=== PATIENT | male | born 1955 | race Caucasian/White ===

== ENCOUNTER 2023-12-12 15:29 | Observation (INO) ==
--- NOTE | 2023-12-12 15:44 | ED Triage Note ---
Date of Service December 12, 2023 Provider in Triage Author: Madison Roach History of Present Illness This patient was briefly evaluated while in triage. An abbreviated physical exam was performed. This patient is a 68-year-old Male who presents to the ED for evaluation of "I have blood in my urine." Pt. was seen at [facility] ED yesterday in [place]. States he spent the night there last night. Has had intermittent blood in the urine since Monday. States they recommended transfer to another hospital in their network, but patient preferred to come here. States he got a shot of antibiotics, labs, and CT imaging completed last night. Physical Exam VITALS: Vitals are noted on the nurse's note and reviewed by myself. GENERAL: This is a 68 year old male, in no acute distress, nondiaphoretic, well- developed well-nourished. SKIN: No obvious rashes, edema, erythema HEAD: Normocephalic atraumatic. EYES: Conjunctivae without injection, sclerae without icterus. NECK: No JVD. LUNGS: No retractions or accessory muscle use. MUSCULOSKELETAL: Normal gait. NEURO: Patient was alert and oriented to person place and time. No focal neurological deficits. Initial orders for labs and / or imaging were placed and patient was placed in the waiting area until a bed is available. Please see further documentation for the full ED course.
--- NOTE | 2023-12-12 16:19 | Emergency Department Note ---
Impression & Plan Hematuria ADMIT ED Provider Note HPI: History obtained from patient. The patient is a 68-year-old male who presents the emergency department with a chief complaint of hematuria. Patient states that he has had some blood in his urine since this past Monday. Patient states that he went to the emergency room at [facility] last night and had CT imaging done and ultimately was recommended for admission for hematuria. Patient states they could not admit him at that facility and they were trying to transfer him to [facility] but secondary to prolonged transfer time patient tells me he signed out AMA and preferred to come to this hospital for further assessment. Patient states he did have a Canela catheter placed overnight and this was ultimately removed. He states he has been having some issues with urinary retention likely secondary to hematuria and blood clots. Patient states he has not been able to urinate since he left the hospital. On arrival here to the ED the patient is otherwise hemodynamically stable, he appears to be in no acute distress on my initial assessment. ROS: - Per HPI Differential Diagnosis: Hemorrhagic renal mass, kidney stone, bladder cancer/bladder tumor, acute cystitis, pyelonephritis, urinary tract infection, BPH, prostate cancer,, amongst other potential pathologies. *Outpatient medications and allergy history reviewed. PE: General: Alert HEENT: Normocephalic, trachea midline Eyes: Extraocular eye movement is intact, no scleral erythema Pulmonary: Clear to auscultation bilaterally, no wheezing Cardio: Regular rate and rhythm GI: Abdomen is soft to palpation : No suprapubic tenderness MSK: No evidence of trauma or malformation of the extremities, no edema Skin: No evidence of rash Neuro: Alert, no focal deficits Psychiatric: Cooperative INDEPENDENT INTERPRETATIONS: hospital monitor: (As interpreted by myself): - An order was placed for continuous cardiac monitoring - Patient was noted to be in sinus rhythm with a rate of 90 Interventions provided in ED: -Canela catheter placed Medical Decision Making: IV was established and lab work obtained, patient was placed on traffic monitor specialist. Lab work shows no leukocytosis, hemoglobin is stable at 11.5 (patient's baseline is about 13.5), CMP does not show any critical findings, creatinine is elevated above baseline at 1.48, BUN is elevated at 34, no critical electrolyte abnormalities are noted, lipase is normal, there is no transaminitis, bilirubin is normal. Urinalysis shows gross hematuria per my interpretation and remainder is not reportable per lab. Patient did present with his CT imaging report from [facility] that was obtained overnight. There was evidence of multiple cystic lesions the largest of which was on his right kidney concerning for proteinaceous cyst versus possible hemorrhagic cyst. Canela catheter was placed as bladder scan was elevated in the 700s and the patient reported urinary retention. Gross hematuria was obtained from the Canela catheter. Catheter was flushed several times without complete resolution of the hematuria. I discussed the patient's presentation with on-call urology, Dr. Gamboa, he is in agreement for consultation and recommends placement of larger caliber catheter for irrigation. This was done with some clearing of the patient's urine. On my reassessment he states he feels improved from previous. [facility] and [facility] consultation. Patient was placed for admission in stable condition. Consultants/Discussions held with other healthcare providers: -Urology, Dr. Gamboa -Hospitalist, Dr. Renee Disposition discussion held by myself with: -Patient Diagnosis: 1. Gross hematuria, acute 2. Urinary retention, acute 3. Right kidney cyst, acute, nonspecific 4. Acute kidney injury 5. Elevated BUN 6. Anemia, acute on chronic Disposition: Admission Collins Palma DO Emergency Medicine Past Med/Surg History Problem List (Updated 12/12/23 @ 21:53 by Collins Palma DO) Hematuria (Acute) DEISI (acute kidney injury) Hematuria Inguinal hernia bilateral, non-recurrent Hypertension (Chronic) Diabetes mellitus, type II (Chronic) Dyslipidemia (Chronic) Gout [facility], followed by Rheumatology B12 deficiency Gastroesophageal reflux disease (Chronic) Benign prostatic hyperplasia with urinary obstruction and other lower urinary tract symptoms (Chronic) Increasing PSA witn nocturia. Followed by urology Elevated prostate specific antigen (PSA) Medical History Acquired deformity of joint of finger Vitamin B12 deficiency Abdominal pain Hyperkalemia Surgical History H/O colonoscopy 09/2016 Repeat 10 yrs Family History Father Cardiac disorder Myocardial infarction Uncle Myocardial infarction Denies family history of Ovarian cancer Prostate cancer Breast cancer Colorectal cancer Social History Smoking Status: Never smoker Second Hand Exposure: No; Do You Dip or Chew Tobacco: No; Hx Alcohol Use: Yes Alcohol type: beer, wine and hard liquor Alcohol Intake Frequency: Monthly or Less Hx Substance Use: No Preferred Language: Nepali Communication Ability: Effective Visual Impairment: Limited Hearing Ability: Normal Route Jumper Required: No marital status: Current Living Situation: Spouse current occupational status: retired How many Children do You have: 0 Feels Safe at Home: Yes Childhood Exposure to Second-Hand Smoke: No Diet: diabetic caffeine: Yes Dental Care, Regularly: Yes Physical Activity Frequency: Daily Physical Activity Frequency Comment: walk Seatbelt Use: always Sunscreen Use: Yes Allergies Allergies Allergy/AdvReac Type Severity Reaction Status Date / Time No Known Allergies Allergy Verified 12/12/23 17:40 Home Meds Home Medications Medication Instructions Recorded Confirmed allopurinol 300 mg tablet 450 mg PO DAILY 04/27/21 12/12/23 Previous Rx's Medication Instructions Recorded esomeprazole magnesium 40 mg 40 mg PO DAILY PRN heartburn #90 08/02/19 capsule,delayed release caps lisinopril 40 mg tablet 40 mg PO DAILY #90 tabs 03/20/23 atorvastatin 40 mg tablet 40 mg PO DAILY #90 tabs 07/03/23 metformin 1,000 mg tablet 1,000 mg PO BID #180 tabs 07/03/23 hydrochlorothiazide 25 mg tablet 25 mg PO DAILY #90 tabs 10/17/23 Results & Data (ED) Vital Signs Vital Signs - 24 hr 12/12/23 15:41 12/12/23 17:23 12/12/23 17:24 Temperature 36.5 C Temperature Source Oral Pulse Rate 116 H 63 Pulse Rate from SpO2 Sensor 63 Respiratory Rate 16 9 L Respiratory Effort / Characteristics Non-Labored Respiratory Depth Normal Blood Pressure 141/74 H Blood Pressure Mean 96 Pulse Oximetry 100 97 100 Oxygen Delivery Method Room Air Room Air Sepsis Recent Fever Within 48 Hours No Sepsis New/Unexplained Change in Mental Status N/A Sepsis Action Taken by Nursing No Action Required 12/12/23 17:29 12/12/23 17:30 12/12/23 17:30 Temperature Temperature Source Pulse Rate 63 66 Pulse Rate from SpO2 Sensor 66 Respiratory Rate 18 Respiratory Effort / Characteristics Respiratory Depth Blood Pressure 130/80 Blood Pressure Mean 86 Pulse Oximetry 99 Oxygen Delivery Method Sepsis Recent Fever Within 48 Hours Sepsis New/Unexplained Change in Mental Status Sepsis Action Taken by Nursing 12/12/23 18:00 12/12/23 18:00 12/12/23 18:30 Temperature Temperature Source Pulse Rate 67 62 Pulse Rate from SpO2 Sensor 65 62 Respiratory Rate 17 15 Respiratory Effort / Characteristics Respiratory Depth Blood Pressure 122/70 Blood Pressure Mean 83 Pulse Oximetry 94 100 Oxygen Delivery Method Room Air Sepsis Recent Fever Within 48 Hours Sepsis New/Unexplained Change in Mental Status Sepsis Action Taken by Nursing 12/12/23 18:30 12/12/23 19:00 12/12/23 19:00 Temperature Temperature Source Pulse Rate 62 Pulse Rate from SpO2 Sensor 63 Respiratory Rate 23 Respiratory Effort / Characteristics Respiratory Depth Blood Pressure 142/87 H 134/77 Blood Pressure Mean 105 83 Pulse Oximetry 95 Oxygen Delivery Method Sepsis Recent Fever Within 48 Hours Sepsis New/Unexplained Change in Mental Status Sepsis Action Taken by Nursing 12/12/23 19:30 12/12/23 19:30 12/12/23 20:00 Temperature Temperature Source Pulse Rate 69 60 Pulse Rate from SpO2 Sensor 68 59 L Respiratory Rate 20 12 Respiratory Effort / Characteristics Respiratory Depth Blood Pressure 117/72 Blood Pressure Mean 79 Pulse Oximetry 95 98 Oxygen Delivery Method Sepsis Recent Fever Within 48 Hours Sepsis New/Unexplained Change in Mental Status Sepsis Action Taken by Nursing 12/12/23 20:00 12/12/23 20:30 12/12/23 20:30 Temperature Temperature Source Pulse Rate 82 Pulse Rate from SpO2 Sensor 81 Respiratory Rate 19 Respiratory Effort / Characteristics Respiratory Depth Blood Pressure 122/66 133/74 Blood Pressure Mean 80 90 Pulse Oximetry 100 Oxygen Delivery Method Sepsis Recent Fever Within 48 Hours Sepsis New/Unexplained Change in Mental Status Sepsis Action Taken by Nursing 12/12/23 21:00 12/12/23 21:00 12/12/23 21:38 Temperature Temperature Source Pulse Rate 87 Pulse Rate from SpO2 Sensor 87 Respiratory Rate 28 H Respiratory Effort / Characteristics Respiratory Depth Blood Pressure 135/71 Blood Pressure Mean 91 Pulse Oximetry 98 Oxygen Delivery Method Room Air Room Air Sepsis Recent Fever Within 48 Hours Sepsis New/Unexplained Change in Mental Status Sepsis Action Taken by Nursing Laboratory Data 12/12/23 16:08 12/12/23 16:08 Lab Results 05/14/24 05/14/24 Range/Units 16:08 17:11 WBC 10.46 (4.8-10.8) K/ul RBC 3.71 L (4.70-6.10) M/uL Hgb 11.5 L (14.0-18.0) g/dl Hct 33.4 L (42.0-52.0) % MCV 90.0 (80.0-100.0) fL MCH 31.0 (25.0-34.0) pg MCHC 34.4 (32.0-36.0) g/dL RDW Std Deviation 42.5 (36.4-46.3) fL RDW Coeff of Ruthann 13.1 (11.5-14.5) % Plt Count 252 (130-400) K/uL MPV 9.1 L (9.4-12.4) fL Immature Gran % (Auto) 0.4 % Neut % (Auto) 77.2 % Lymph % (Auto) 15.4 % [place] % (Auto) 5.3 % Eos % (Auto) 1.1 % Baso % (Auto) 0.6 % Neut # (Auto) 8.09 H (1.40-6.50) K/uL Lymph # (Auto) 1.61 (1.20-3.40) K/uL [place] # (Auto) 0.55 (0.11-0.59) K/uL Eos # (Auto) 0.11 (0.00-0.50) K/uL Baso # (Auto) 0.06 (0.00-0.20) K/uL Immature Gran # (Auto) 0.04 (0.01-0.20) K/uL PT 10.5 (9.0-12.0) Seconds INR 1.0 (0.9-1.1) APTT 24 (21-31) Seconds PTT Ratio 0.9 Sodium 135 L (136-145) mmol/L Potassium 4.7 (3.5-5.1) mmol/L Chloride 100 (98-107) mmol/L Carbon Dioxide 22 (21-32) mmol/L Anion Gap 13 H (3-11) BUN 34 H (6-23) mg/dl Creatinine 1.48 H (0.6-1.4) mg/dl Est Cr Clr Drug Dosing 53.2 ml/min Est GFR ( Amer) 55.9 ml/min Est GFR (Non-Af Amer) 48.3 ml/min BUN/Creatinine Ratio 23.0 H (10-20) Glucose 217 H (70-99(Fasting)) mg/dl Calcium 9.4 (8.6-10.3) mg/dl Total Bilirubin 0.6 (0.2-1.0) mg/dl AST 17 (13-39) U/L ALT 10 (7-52) U/L Alkaline Phosphatase 91 (34-104) U/L Total Protein 7.2 (6.0-8.3) gm/dl Albumin 4.5 (3.4-5.0) gm/dl Globulin 2.7 (2.5-4.0) gm/dl Albumin/Globulin Ratio 1.7 (0.9-2) Lipase 41 (11-82) U/L Urine Color See Comment Urine Appearance Cloudy A (Clear) Urine pH Not Reportable Ur Specific [place] 1.021 (1.000-1.030) Urine Protein Not Reportable Urine Glucose (UA) Not Reportable Urine Ketones Not Reportable Urine Blood Not Reportable Urine Nitrite Not Reportable Urine Bilirubin Not Reportable Urine Urobilinogen Not Reportable Ur Leukocyte Esterase Not Reportable Urine WBC (Auto) 21-50 (0-5) /hpf Urine RBC (Auto) >20 (0-4) /hpf U Hyaline Cast (Auto) 0-2 (0-5) /lpf U Epithel Cells (Auto) 0-2 (0-5) /lpf Urine Bacteria (Auto) None Seen (Negative) Discharge Plan Visit Data Chief Complaint: Urinary Symptoms Stated Complaint: BLOOD IN URINE ED Provider: Collins Palma Discharge Problem: Hematuria Patient Disposition: Admitted As Inpatient Discharge Instructions Interventions: ED Discharge Assessment Last Done: 12/12/23 21:38 Forms Stand Alone Forms: [email or web address] Prescriptions Prescriptions: No Action lisinopril 40 mg tablet 40 mg PO DAILY Qty: 90 3RF atorvastatin 40 mg tablet 40 mg PO DAILY Qty: 90 3RF metformin 1,000 mg tablet 1,000 mg PO BID Qty: 180 3RF Rx Instructions: WILL HOLD X 48 HRS D/T CT SCAN. allopurinol 300 mg tablet 450 mg PO DAILY esomeprazole magnesium 40 mg capsule,delayed release(DR/EC) 40 mg PO DAILY PRN (Reason: heartburn) Qty: 90 0RF hydrochlorothiazide 25 mg tablet 25 mg PO DAILY Qty: 90 1RF Referrals Referrals: Kushal Nava DO [Primary Care Provider] - Discharge Problem: Hematuria Qualifiers: Hematuria type: gross Qualified Code(s): R31.0 - Gross hematuria
[2023-12-12 16:23] LABS: Basophils # (auto) 0.06 K/uL (0.00-0.20); Basophils % (auto) 0.6 %; Eosinophils # (auto) 0.11 K/uL (0.00-0.50); Eosinophils % (auto) 1.1 %; Hematocrit (blood only) 33.4 % (42.0-52.0); Hemoglobin 11.5 g/dl (14.0-18.0); Immature Granulocytes # (auto) 0.04 K/uL (0.01-0.20); Immature Granulocytes % (auto) 0.4 %; Lymphocytes # (auto) 1.61 K/uL (1.20-3.40); Lymphocytes % (auto) 15.4 %; Mean Corpuscular Hgb Conc 34.4 g/dL (32.0-36.0); Mean Platelet Volume 9.1 fL (9.4-12.4); Monocytes # (auto) 0.55 K/uL (0.11-0.59); Monocytes % (auto) 5.3 %; Neutrophils # (auto) 8.09 K/uL (1.40-6.50); Neutrophils % (auto) 77.2 %; Platelet Count 252 K/uL (130-400); RDW Coefficient of Variation 13.1 % (11.5-14.5); RDW Standard Deviation 42.5 fL (36.4-46.3); Red Blood Count 3.71 M/uL (4.70-6.10); White Blood Count 10.46 K/ul (4.8-10.8)
[2023-12-12 16:43] LABS: Albumin Globulin Ratio 1.7 (0.9-2); Albumin Level 4.5 gm/dl (3.4-5.0); Bilirubin,Total 0.6 mg/dl (0.2-1.0); Calcium 9.4 mg/dl (8.6-10.3); Creatinine Clr Calc Pharmacy 53.2 ml/min; Est GFR (African American) 55.9 ml/min; Est GFR (Non-African American) 48.3 ml/min; Globulin 2.7 gm/dl (2.5-4.0); Potassium 4.7 mmol/L (3.5-5.1); Total Protein 7.2 gm/dl (6.0-8.3)
[2023-12-12 16:52] LABS: Partial Thromboplastin Ratio 0.9; Partial Thromboplastin Time 24 Seconds (21-31); Prothrombin Time 10.5 Seconds (9.0-12.0)
[2023-12-12 17:39] LABS: Appearance Urine Cloudy (Clear); Specific Gravity Urine 1.021 (1.000-1.030)
[2023-12-12 17:40] LABS: Cast Urine Automated 0-2 /lpf (0-5); Epithelial Cell Urine Auto 0-2 /lpf (0-5); RBC Urine Automated >20 /hpf (0-4); WBC Urine Automated 21-50 /hpf (0-5)
[2023-12-12 17:41] LABS: Bacteria Urine Automated None Seen (Negative)
--- NOTE | 2023-12-12 18:34 | History & Physical Report ---
Date of Service December 12, 2023 Assessment & Plan (1) Hematuria: Plan: - painless hematuria starting Monday with urinary retention - nonsmoker, never smoked. - Discussed with urology in the ED. Make NPO, will see in the AM. - Received a dose of ceftriaxone. Will try to get UA and culture from [facility]. - Continue on ceftriaxone. - CT scan done at [facility], showing cysts on the kidney?? Will try to get records. Hold off on repeat CT at this time. - CBC mostly benign, hemoglobin of 11.5. Will trend daily CBC. (2) Benign prostatic hyperplasia with urinary obstruction and other lower urinary tract symptoms: Plan: - BPH, most likely cause of hematuria. approximately 800 CC bladder scan. - 3 way catheter needed in the ED. will hold off on continuous irrigation at this time. - UA mostly undetectable due to gross hematuria. Will try to repeat UA at time of admission. (3) DEISI (acute kidney injury): Plan: - Creatinine of 1.48, most likely 2/2 urinary retention. - Will start on NSS 1L at time of admission. Will DC after one bag - Trend creatinine in AM labs. (4) Diabetes mellitus, type II: Plan: - Patient's home regimen held on admission - Continue BSG checks, sliding-scale insulin, hypoglycemic protocol - Will continue with Q4H checks due to NPO status. (5) Inguinal hernia bilateral, non-recurrent: Plan: - noted on physical exam. reducible at this time. (6) Hypertension: Plan: - on lisinopril and HZTZ. On hold due to being NPO. (7) Dyslipidemia: Plan: - on atorvastatin. On hold due to being NPO. (8) Gout: Plan: - on allopurinol. On hold due to being NPO. History of Present Illness Chief Complaint: hematuria Primary Care Provider: Kushal Nava DO Patient is a 68 y/o male with past medical history of HTN, DM2, BPH, and dyslipidemia who presents to the hospital for hematuria. Patient states that symptoms started on Monday. Pain with hematuria. Did have some urinary retention. Denies any dysuria or discoloration prior to the episode of hematuria. Denies any urinary urgency or frequency prior to this. He initially went to [facility] in [place] but was going to be transferred to [place], so patient signed out AMA and decided to come here. Jeff any back pain. He is a non-smoker and has never smoked. Some dysuria since symptoms have started. Denies any fever, chills, CP, or ab pain. Allergies Allergy/AdvReac Type Severity Reaction Status Date / Time No Known Allergies Allergy Verified 12/12/23 17:40 Home Medications Medication Instructions Recorded Confirmed Type esomeprazole magnesium 40 mg 40 mg PO DAILY PRN heartburn #90 08/02/19 12/12/23 Rx capsule,delayed release caps allopurinol 300 mg tablet 450 mg PO DAILY 04/27/21 12/12/23 History lisinopril 40 mg tablet 40 mg PO DAILY #90 tabs 03/20/23 12/12/23 Rx atorvastatin 40 mg tablet 40 mg PO DAILY #90 tabs 07/03/23 12/12/23 Rx metformin 1,000 mg tablet 1,000 mg PO BID #180 tabs 07/03/23 12/12/23 Rx hydrochlorothiazide 25 mg tablet 25 mg PO DAILY #90 tabs 10/17/23 12/12/23 Rx Past Med/Surg History Problem List (Updated 12/12/23 @ 19:03 by Eliud Manzano DO) DEISI (acute kidney injury) Hematuria Inguinal hernia bilateral, non-recurrent Hypertension (Chronic) Diabetes mellitus, type II (Chronic) Dyslipidemia (Chronic) Gout [facility], followed by Rheumatology B12 deficiency Gastroesophageal reflux disease (Chronic) Benign prostatic hyperplasia with urinary obstruction and other lower urinary tract symptoms (Chronic) Increasing PSA witn nocturia. Followed by urology Elevated prostate specific antigen (PSA) Medical History Elevated prostate specific antigen (PSA) Acquired deformity of joint of finger Gout B12 deficiency Vitamin B12 deficiency Abdominal pain Hyperkalemia Diabetes mellitus, type II Benign prostatic hyperplasia with urinary obstruction and other lower urinary tract symptoms Dyslipidemia Gastroesophageal reflux disease Hypertension Surgical History H/O colonoscopy Family History Father Cardiac disorder Myocardial infarction Uncle Myocardial infarction Denies family history of Ovarian cancer Prostate cancer Breast cancer Colorectal cancer Social History Smoking Status: Never smoker Second Hand Exposure: No; Do You Dip or Chew Tobacco: No; Hx Alcohol Use: Yes Alcohol type: beer, wine and hard liquor Alcohol Intake Frequency: Monthly or Less Hx Substance Use: No Preferred Language: Ugandan Communication Ability: Effective Visual Impairment: Limited Hearing Ability: Normal 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: No marital status: Current Living Situation: Spouse current occupational status: retired How many Children do You have: 0 Feels Safe at Home: Yes Childhood Exposure to Second-Hand Smoke: No Diet: diabetic caffeine: Yes Dental Care, Regularly: Yes Physical Activity Frequency: Daily Physical Activity Frequency Comment: walk Seatbelt Use: always Sunscreen Use: Yes Review of Systems 2 Review of Systems: All systems reviewed & are unremarkable except as noted in Subjective Physical Exam Physical Exam: Constitutional: well-appearing, no acute distress HEENT: NCAT, no conjunctival injection CV: regular rhythm, no murmur appreciated, extremities well-perfused, no LE randy ma Resp: CTABL, no wheezes/rales/rhonchi appreciated, no increased work of breathing GI: soft, nondistended, nontender, BS normoactive, reducible bilateral inguinal hernias, no suprapubic tenderness MSK: no gross deformities appreciated, no CVA tenderness Skin: warm, dry, no rash appreciated Neuro: alert, oriented, no focal neurologic deficit appreciated Results & Data Results & Data Vital Signs (Past 12 Hours) Vital Signs Temp Pulse Resp BP Pulse Ox O2 Del Method 12/12/23 17:29 63 12/12/23 17:23 97 Room Air 12/12/23 15:41 36.5 C 116 H 16 141/74 H 100 Room Air Supervising Physician Co-Signing Physician Notes patient seen and examined, chart reviewed, case discussed with Eliud Manzano and I agree with the assessment and plan as above except as otherwise noted Labs and images reviewed 68-year-old male with recurrent hematuria. Patient was seen at [facility] and was recommended to be transferred to [facility] however patient signed out AMA and presented prefers to receive care here. Pending CT transfer, some concerns for renal cyst and abnormalities concerning for potential hemorrhagic cysts versus malignancy. While in the ER patient was retaining greater than 800 cc, bladder has been decompressed and 3 currently catheter placed. Will be irrigated, if continues to retain or obstructed then will be put to continuous irrigation. Urology consulted. UA unreliable due to gross blood. Patient is covered with empiric Rocephin. Agree with above.
--- NOTE | 2023-12-12 19:11 | Billing Data ---
Date of Service December 12, 2023 Coding Level of Care Code 11474 INT INP/OBS CARE
--- NOTE | 2023-12-12 20:45 | Urology Consultation ---
<Statement entered by Rangel Gamboa MD - 12/13/23 08:41> I have discussed Mr. Rodney's case with Ronnie Rollins PA-C and agree with the above documentation. He will require full hematuria workup eventually. In the short-term, would continue to monitor urine output with Canela catheter. If catheter becomes clogged, hand irrigation can be performed to clear the cathete r. Could be converted to continuous bladder irrigation if needed for ongoing clotting. Urology will follow along. -Rangel Gamboa MD. Date of Consultation December 12, 2023 Assessment & Plan (1) Hematuria: Patient has been admitted on the hospital service. From a urologic perspective we recommend the following: The cause of patient's hematuria needs to be further evaluated. The patient is noted to have possible hemorrhagic cyst on his kidneys. He also has BPH which may be contributing as well. Patient has a Canela catheter in place and I would recommend maintaining the Canela catheter. If it becomes clogged nursing staff can flush and irrigate the catheter manually Serial labs to be followed Would recommend keeping the patient n.p.o. after midnight tonight. The patient be reevaluated the morning of 12/13/2023 and a determination be made if patient will undergo cystoscopy while he is hospitalized if this can be pursued at a later date It is also noteworthy to mention that the patient did bring a CT scan disc from [facility] where he did have a CT scan of the abdomen pelvis. Efforts can be made tomorrow during dayshift to have this CT scan uploaded to our PACS system where it can be reviewed. History of Present Illness Reason for Consultation: Gross hematuria History of Present Illness This is a 68-year-old male who presented to the emergency department at [facility] secondary to gross hematuria. Patient says 48 hours ago he noticed a gross hematuria but prior to that he was in his usual state of health able to urinate without difficulty. Patient notes that he does have a history of BPH. He previously followed with [facility] physician group urology and did have a an episode where he had a noted elevation of his PSA level. He had a prostate biopsy which came back negative for cancer at that time. Prior to his hematuria developing the patient notes that he did notice somewhat weaker urine stream but he denies any urinary hesitancy. He also notes that at times he cannot empty his bladder completely. As noted above 48 hours ago he began having gross hematuria which was initially painless. He was began passing blood clots which did cause some discomfort. He has never had this before. He notes he is a non-smoker. 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 He has no family history of bladder or prostate cancer. Patient initially presented to [facility] where he had a CT scan of the abdomen pelvis. I was able to review the report and this showed the patient had multiple renal cysts as well as a 1.6 cm right renal lesion concerning for hemorrhagic cyst. He was also noted to have an enlarged prostate gland. The patient left [facility] and presented to [facility] emergency department for urology care. Since arrival to [facility] he has had additional labs where CBC revealed white blood cell count and platelet count were normal. Hemoglobin and hematocrit 11.5 and 33.4. Coagulation studies were normal. Chemistry profile shows sodium is 135 with a potassium of 4.7. His BUN and creatinine were 34 and 1.4. The patient did have a urinalysis that was not indicative of a urinary tract infection. The patient notes that he did have a Canela catheter placed at [facility] but this was removed prior to his leaving that facility but this catheter was replaced here at [facility]. The catheter has been flushed and irrigated and is currently draining. At the time my interview the patient was resting comfortably in bed he was in no distress. Allergies Allergy/AdvReac Type Severity Reaction Status Date / Time No Known Allergies Allergy Verified 12/12/23 17:40 Home Medications Medication Instructions Recorded Confirmed Type esomeprazole magnesium 40 mg 40 mg PO DAILY PRN heartburn #90 08/02/19 12/12/23 Rx capsule,delayed release caps allopurinol 300 mg tablet 450 mg PO DAILY 04/27/21 12/12/23 History lisinopril 40 mg tablet 40 mg PO DAILY #90 tabs 03/20/23 12/12/23 Rx atorvastatin 40 mg tablet 40 mg PO DAILY #90 tabs 07/03/23 12/12/23 Rx metformin 1,000 mg tablet 1,000 mg PO BID #180 tabs 07/03/23 12/12/23 Rx hydrochlorothiazide 25 mg tablet 25 mg PO DAILY #90 tabs 10/17/23 12/12/23 Rx Patient History Medical History Acquired deformity of joint of finger Vitamin B12 deficiency Abdominal pain Hyperkalemia Surgical History H/O colonoscopy 09/2016 Repeat 10 yrs Family History Father Cardiac disorder Myocardial infarction Uncle Myocardial infarction Denies family history of Ovarian cancer Prostate cancer Breast cancer Colorectal cancer Social History Smoking Status: Never smoker Second Hand Exposure: No; Do You Dip or Chew Tobacco: No; Hx Alcohol Use: Yes Alcohol type: beer, wine and hard liquor Alcohol Intake Frequency: Monthly or Less Hx Substance Use: No Preferred Language: Singaporean Communication Ability: Effective Visual Impairment: Limited Hearing Ability: Normal Finishing Range Operator Required: No marital status: Current Living Situation: Spouse current occupational status: retired How many Children do You have: 0 Feels Safe at Home: Yes Childhood Exposure to Second-Hand Smoke: No Diet: diabetic caffeine: Yes Dental Care, Regularly: Yes Physical Activity Frequency: Daily Physical Activity Frequency Comment: walk Seatbelt Use: always Sunscreen Use: Yes Review of Systems Review of Systems: All systems reviewed & are unremarkable except as noted in HPI & below Physical Exam Constitutional: WD/WN, vitals as above Eyes: no conjunctival abnormality Wears glasses ENMT: Ears: no hearing impairment and no external ear abnormality Mouth: no oropharynx abnormality Neck: trachea midline Respiratory: normal respiratory effort; no respiratory distress and no labored breathing Cardiovascular: Rate/Rhythm: regular rate and regular rhythm Gastrointestinal (Abdomen): Soft and nontender. Musculoskeletal: No calf tenderness Skin: no rashes Neurologic: moves all extremities Psychiatric: A+Ox3, euthymic affect Genitourinary: No CVA tenderness with percussion bilaterally. The patient has a Canela catheter in place that is draining lawson colored urine. There are no clots in the collection tubing at the time my exam and the catheter is patent and draining appropriately Results & Data Vital Signs (Past 12 Hours) Vital Signs Temp Pulse Resp BP Pulse Ox O2 Del Method 12/12/23 18:30 142/87 H 12/12/23 18:30 62 15 100 Room Air 12/12/23 18:00 67 17 94 12/12/23 18:00 122/70 12/12/23 17:30 130/80 12/12/23 17:30 66 18 99 12/12/23 17:29 63 12/12/23 17:24 63 9 L 100 12/12/23 17:23 97 Room Air 12/12/23 15:41 36.5 C 116 H 16 141/74 H 100 Room Air PG Care Time/CCT Total # of Minutes Spent Total Time Spent with Patient: Total time spent is greater than 50% in coordination of care (as documented) at patient's floor/unit and/or counseling patient: Coding Level of Care Code 01791 INT INP/OBS CARE 3/75MIN Diagnoses Hematuria R31.9
[2023-12-12] MEDS ORDERED: GLUCOSE 10 TAB/TUBE PO PRN (22:26)
[2023-12-12] MEDS ORDERED: MELATONIN 3 MG TAB PO PRN (22:26)
[2023-12-12] MEDS ORDERED: POLYETHYLENE (MIRALAX) 17 GM PACK PO PRN (22:26)
[2023-12-12] MEDS ORDERED: GLUCOSE 40% GEL 15 GM TUBE PO PRN (22:26)
[2023-12-12] MEDS ORDERED: CARBOHYDRATES FOR HYPOGLYCEMIA PO PRN (22:26)
[2023-12-12] MEDS ORDERED: ONDANSETRON INJ 2 MG/ML 2 ML VIAL IV PRN (22:26)
[2023-12-12] MEDS ORDERED: DEXTROSE 50% 50 ML SYRINGE IV PRN (22:26)
[2023-12-12] MEDS ORDERED: GLUCAGON FOR INJ 1 MG VIAL SQ PRN (22:26)
[2023-12-12] MEDS: SODIUM CHLORIDE 0.9% 1,000 ML IV SCH (22:47)
[2023-12-12] MEDS: INSULIN ASPART PER UNIT CHARGE SC SCH (22:47)
[2023-12-12] MEDS: cefTRIAXone SODIUM 2,000 MG/50 ML BAG IV SCH (22:47)
[2023-12-13] MEDS ORDERED: Nursing to Pharmacy Communication SCH ×2 (00:15→11:15)
[2023-12-13 07:36] LABS: Basophils # (auto) 0.06 K/uL (0.00-0.20); Basophils % (auto) 0.6 %; Eosinophils # (auto) 0.22 K/uL (0.00-0.50); Eosinophils % (auto) 2.3 %; Hematocrit (blood only) 27.9 % (42.0-52.0); Hemoglobin 9.2 g/dl (14.0-18.0); Immature Granulocytes # (auto) 0.04 K/uL (0.01-0.20); Immature Granulocytes % (auto) 0.4 %; Lymphocytes # (auto) 1.61 K/uL (1.20-3.40); Lymphocytes % (auto) 16.6 %; Mean Corpuscular Hemoglobin 30.3 pg (25.0-34.0); Mean Corpuscular Volume 91.8 fL (80.0-100.0); Mean Platelet Volume 9.2 fL (9.4-12.4); Monocytes # (auto) 0.73 K/uL (0.11-0.59); Monocytes % (auto) 7.5 %; Neutrophils # (auto) 7.05 K/uL (1.40-6.50); Neutrophils % (auto) 72.6 %; Platelet Count 178 K/uL (130-400); RDW Coefficient of Variation 13.1 % (11.5-14.5); RDW Standard Deviation 43.1 fL (36.4-46.3); Red Blood Count 3.04 M/uL (4.70-6.10); White Blood Count 9.71 K/ul (4.8-10.8)
[2023-12-13 08:09] LABS: Albumin Globulin Ratio 1.6 (0.9-2); Albumin Level 3.6 gm/dl (3.4-5.0); BUN Creatinine Ratio 20.5 (10-20); Bilirubin,Total 0.4 mg/dl (0.2-1.0); Calcium 8.5 mg/dl (8.6-10.3); Est GFR (African American) 67.3 ml/min; Est GFR (Non-African American) 58.1 ml/min; Globulin 2.3 gm/dl (2.5-4.0); Potassium 4.4 mmol/L (3.5-5.1); Total Protein 5.9 gm/dl (6.0-8.3)
--- NOTE | 2023-12-13 10:06 | Hospitalist Progress Note ---
Date of Service December 13, 2023 Assessment & Plan (1) Hematuria: Plan: - Painless hematuria starting 12/10/23 with urinary retention. - Patient initially presented to [facility] but was going to be transferred to [facility], so he signed out AMA and came to [facility]. - CT abdomen / pelvis from [facility] noted possible hemorrhagic cyst on his kidneys. - Nonsmoker, never smoked. - Patient received dose of ceftriaxone in ED. Will try to get UA and culture from [facility] -- depending on results, consider discontinuing antibiotics. - Urology consulted, recommendations appreciated. -- Canela catheter placed -- Patient made n.p.o. at midnight for possibility of cystoscopy while hospitalized. (2) Benign prostatic hyperplasia with urinary obstruction and other lower urinary tract symptoms: Plan: - BPH, most likely cause of hematuria. approximately 800 CC bladder scan. - 3 way catheter needed in the ED. will hold off on continuous irrigation at this time. - UA grossly (3) Hypertension: Plan: - on lisinopril and HZTZ. On hold due to being NPO. (4) Diabetes mellitus, type II: Plan: - Patient's home regimen held on admission - Continue BSG checks, sliding-scale insulin, hypoglycemic protocol - Will continue with Q4H checks due to NPO status. (5) Dyslipidemia: Plan: - on atorvastatin. On hold due to being NPO. (6) Gout: Plan: - on allopurinol. On hold due to being NPO. (7) DEISI (acute kidney injury): Plan CODE STATUS: Full code Admission and Anticipated Discharge Date Admission Date: December 12, 2023 Physical Exam Physical Exam: Constitutional: well-appearing, no acute distress HEENT: NCAT, no conjunctival injection CV: regular rhythm, no murmur appreciated, extremities well-perfused, no LE edema Resp: CTABL, no wheezes/rales/rhonchi appreciated, no increased work of breathing GI: soft, nondistended, nontender, BS normoactive, reducible bilateral inguinal hernias, no suprapubic tenderness MSK: no gross deformities appreciated, no CVA tenderness Skin: warm, dry, no rash appreciated Neuro: alert, oriented, no focal neurologic deficit appreciated Results & Data Results & Data Vital Signs (Past 12 Hours) Vital Signs Temp Pulse Resp BP Pulse Ox O2 Del Method 12/13/23 08:26 64 108/58 L 12/13/23 07:07 37.1 C 74 18 96/59 L 95 Room Air 12/12/23 22:29 37.1 C 88 18 142/86 H 98 Room Air Laboratory Results Reviewed CBC Reviewed CMP Reviewed UA Hepatitis C antibodypending PG Care Time/CCT Total # of Minutes Spent Total Time Spent with Patient: Total time spent is greater than 50% in coordination of care (as documented) at patient's floor/unit and/or counseling patient: Coding Diagnoses Hematuria R31.9 Benign prostatic hyperplasia with urinary obstruction and other lower urinary tract symptoms N40.1; N13.8 Hypertension I10 Diabetes mellitus, type II E11.9 Dyslipidemia E78.5 Gout M10.9 DEISI (acute kidney injury) N17.9
[2023-12-13] MEDS: SODIUM CHLORIDE 0.65% NA SOLN 45 ML (OCEAN) ONE (11:36)
--- NOTE | 2023-12-13 11:52 | Urology Progress Note ---
Date of Service December 13, 2023 Assessment & Plan (1) Hematuria: Plan 68-year-old male admitted with urinary retention and gross hematuria. Per notes, CT imaging from outside facility noted multiple renal cysts as well as a right renal lesion concerning for hemorrhagic cyst. He was also noted to have an enlarged prostate gland. Afebrile and hemodynamically stable at present Labs today show no leukocytosis, hemoglobin 11.5-9.2 today, creatinine improved from 1.481.27 today. Continue to trend. Urine culture pending. On empiric ceftriaxone. Hematuria has cleared. Canela intact and draining clear yellow urine at present. No acute urological intervention warranted at this time. Maintain Canela catheter and continue to monitor. Okay to hand irrigate as needed for clots, retention, suprapubic pain. Continue antibiotics and tailor as culture data comes available. He will require full hematuria workup with cystoscopy, however this can be performed as an outpatient. Will arrange outpatient follow-up with our service. Urology will follow along. Admission and Anticipated Discharge Date Admission Date: December 12, 2023 Subjective Pt seen at bedside this AM Awake, resting in bed on arrival No acute distress Canela intact and draining clear yellow urine No reported pain at present Denies fever, chills, nausea, vomiting Review of Systems Constitutional: as per Subjective / HPI Genitourinary: + as per Subjective / HPI Physical Exam Constitutional: no acute distress Respiratory: no respiratory distress and no labored breathing Skin: No visible rashes or lesions to exposed skin areas Neurologic: moves all extremities and awake Psychiatric: A+Ox3, euthymic affect Genitourinary: Canela intact and draining clear yellow urine Results & Data Vital Signs (Past 12 Hours) Vital Signs Temp Pulse Resp BP Pulse Ox O2 Del Method 12/13/23 08:26 64 108/58 L 12/13/23 07:07 37.1 C 74 18 96/59 L 95 Room Air PG Care Time/CCT Total # of Minutes Spent Total Time Spent with Patient: Total time spent is greater than 50% in coordination of care (as documented) at patient's floor/unit and/or counseling patient: Coding Level of Care Code 99540 SUB INP/OBS CARE 2/35MIN Diagnoses Hematuria R31.0 Hematuria type: gross (1) Hematuria Hematuria type: gross Qualified Code(s): R31.0 - Gross hematuria
[2023-12-13] MEDS: INSULIN ASPART PER UNIT CHARGE SC SCH (12:25)
--- NOTE | 2023-12-13 17:38 | Discharge Summary ---
<Statement entered by Joana Marion MD - 12/13/23 19:31> Gross hematuria resolving with light pink urine no clots time of discharge. Mild elevation in creatinine on admission resolved to baseline 1.2 today, underlying CKD-3. Has follow up with urology for completion of hematuria workup as outpatient. Discharge Summary Date of Service December 13, 2023 Notes For Next Care Provider Follow-up with urologyappointment in 1 week for removal of Canela catheter and voiding trial. Appointment in 2-3 weeks for cystoscopy and further hematuria workup. Medication Changes From Visit Patient was prescribed Keflex twice daily x 5 days on discharge. Admission HPI Per Admitting Provider Patient is a 68 y/o male with past medical history of HTN, DM2, BPH, and dyslipidemia who presents to the hospital for hematuria. Patient states that symptoms started on Monday. Pain with hematuria. Did have some urinary retention. Denies any dysuria or discoloration prior to the episode of hematuria. Denies any urinary urgency or frequency prior to this. He initially went to [facility] in [place] but was going to be transferred to [facility], so patient signed out AMA and decided to come here. Jeff any back pain. He is a non-smoker and has never smoked. Some dysuria since symptoms have started. Denies any fever, chills, CP, or ab pain. Admission Exam Per Admitting Provider Constitutional: well-appearing, no acute distress HEENT: NCAT, no conjunctival injection CV: regular rhythm, no murmur appreciated, extremities well-perfused, no LE edema Resp: CTABL, no wheezes/rales/rhonchi appreciated, no increased work of breathing GI: soft, nondistended, nontender, BS normoactive, reducible bilateral inguinal hernias, no suprapubic tenderness MSK: no gross deformities appreciated, no CVA tenderness Skin: warm, dry, no rash appreciated Neuro: alert, oriented, no focal neurologic deficit appreciated Principal Dx & Hospital Course #1 = Principal Diagnosis (1) Hematuria: - Painless hematuria starting 12/10/23 with urinary retention. - Patient initially presented to [facility] but was going to be transferred to [facility], so he signed out AMA and came to [facility]. - CT abdomen / pelvis from [facility] noted possible hemorrhagic cyst on his kidneys. - Nonsmoker, never smoked. - Patient received dose of ceftriaxone in ED. Will try to get UA and culture from [facility]. - Urology consulted, recommendations appreciated. -- Canela catheter placed. Continue with Canela catheter until follow-up appointment outpatient for removal with voiding trial in 1 week. -- Cystoscopy and further hematuria workup with urology outpatient in 2-3 weeks. -- Keflex 500 mg twice daily x 5 days due to Acnela catheter manipulation and irrigation. - Hepatitis C antibody - pending. - Patient draining clear yellow urine from Canela catheter on day of discharge. (2) Benign prostatic hyperplasia with urinary obstruction and other lower urinar y tract symptoms: - BPH, most likely cause of hematuria. approximately 800 CC bladder scan. - 3 way catheter needed in the ED. will hold off on continuous irrigation at this time. - UA grossly (3) Hypertension: - on lisinopril and HZTZ (4) Diabetes mellitus, type II: - Continue BSG checks, sliding-scale insulin, hypoglycemic protocol - Continue home diabetic regimen on discharge (5) Dyslipidemia: - on atorvastatin (6) Gout: - on allopurinol (7) DEISI (acute kidney injury): Creatinine on admission 1.48 Creatinine improved to 1.27 on day of discharge. Plan CODE STATUS: Full code Discharge Exam General: No acute distress, nondiaphoretic, well-developed, well-nourished. Canela catheter in place. Skin: The skin was without rashes, erythema, edema, or bruising. Cardiac: Regular rate and rhythm without murmurs gallops or rubs. Pulm: Clear to auscultation bilaterally without wheezes, rales or rhonchi. No retractions or accessory muscle use. Abdominal: Positive bowel sounds x 4. Soft, nontender, without masses or organomegaly. No guarding or rebound tenderness. Reducible bilateral inguinal hernias. No suprapubic tenderness. Neuro: A&O x3. No focal neurological deficits. Updated Medication List Medication Instructions Recorded Confirmed Type esomeprazole magnesium 40 mg 40 mg PO DAILY PRN heartburn #90 08/02/19 12/12/23 Rx capsule,delayed release caps allopurinol 300 mg tablet 450 mg PO DAILY 04/27/21 12/12/23 History lisinopril 40 mg tablet 40 mg PO DAILY #90 tabs 03/20/23 12/12/23 Rx atorvastatin 40 mg tablet 40 mg PO DAILY #90 tabs 07/03/23 12/12/23 Rx metformin 1,000 mg tablet 1,000 mg PO BID #180 tabs 07/03/23 12/12/23 Rx hydrochlorothiazide 25 mg tablet 25 mg PO DAILY #90 tabs 10/17/23 12/12/23 Rx cephalexin 500 mg capsule 500 mg PO BID 5 days #10 caps 12/13/23 Rx Hospital Stay Data Consultations 12/12/23 18:08 Consult Urology Routine 12/12/23 18:19 ED Decision to Admit Stat Pending Results Patient Have Any Pending Studies at Discharge: Yes Discharge Instructions Given to Patient (Per Discharging Provider) Mr. Rodney, You were admitted to the hospital due to hematuria (blood in your urine). You had a Canela catheter inserted with irrigation, which was initially draining rene blood with clots. However today, you have been draining clear yellow urine. Urology saw you while you are hospitalized, and they feel as though no acute urological intervention is necessary at this time. You have been on IV antibiotics while hospitalized, and will continue with oral antibiotics upon discharge because of the catheter manipulations and irrigation. This is to prevent infection from developing. Urology would like your catheter to stay in upon discharge. It will be removed in their office during your follow-up appointment. Upon discharge from the hospital: * Please take Keflex (oral antibiotic) twice daily for 5 days. This prescription has been sent to the [facility] in [place]. * You will follow-up with urology as an outpatient. -- You will have an appointment in their office in 1 week for a voiding trial. At this appointment, your Canela catheter will be removed. -- You will have another appointment in their office in 2 to 3 weeks for further hematuria workup. A cystoscopy will be performed at this appointment. -- Their office will call you with your appointment dates and times. * Information about catheter care and emptying your urinary catheter bag has been printed out and included in your discharge papers. * Continue your other at home medications as prescribed. Please contact either your PCP or the urology office if you experience any of the following: Fever of 100.4 F or higher, chills, bladder pain or fullness, abd ominal swelling, nausea or vomiting, lower back pain, bladder urine leaking around the catheter, if the catheter stops draining for 6 hours or more, if the catheter falls out, weakness, dizziness, or fainting. It was a pleasure taking care of you while you were in the hospital, Joana Love PA-C Total Time Total Time Spent Total Time Spent (In Minutes): Greater than 30 minutes spent completing this discharge process including direct patient care, medication reconciliation, documentation, review of labs and images, and coordination of care. Coding Level of Care Code 86968 INP/OBS DISCH >30 MIN Diagnoses Hematuria R31.9 Benign prostatic hyperplasia with urinary obstruction and other lower urinary tract symptoms N40.1; N13.8 Hypertension I10 Diabetes mellitus, type II E11.9 Dyslipidemia E78.5 Gout M10.9 DEISI (acute kidney injury) N17.9
--- OUTSIDE RECORDS SUMMARY | 2023-12-13 20:24 | External Medical Summary | Summary of Care ---
Author Name Unknown Organization [facility] Address [address] [facility] [facility] [address] Phone [phone] Care Team Providers Care [employer] Name Role Phone Kushal Nava DO Primary Care Provider [phone] Encounter Details Date Type Department Care Team (Late st Contact Info) Description 11/02/2023 Orders Only [address] [place] [address] Kushal German MD [address] [place] [address] [facility] [place] [id number] Allergies No known active allergiesdocumented as of this encounter (statuses as of 11/02/2023) Medications Medication Sig Dispensed Refills Start Date End Date Status Atorvastatin Calcium 40 MG Oral Tablet Take 1 Tablet by mouth in the morning. 0 Active Lisinopril 40 MG Oral Tablet Take 1 Tablet by mouth in the morning. 0 Active metFORMIN HCl 1000 MG Oral Tablet (GLUCOPHAGE) Take 1 Tablet by mouth 2 times a day with morning and evening meals. 0 Active Aspirin 81 MG Oral Tablet Delayed Release Take 1 Tablet by mouth in the morning. 0 Active Naproxen Sodium 220 MG Oral Tablet Take 1 Tablet by mouth 2 times a day with morning and evening meals. 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 Hyperlipidemia Prediabetes Essential hypertension documented as of this encounter (statuses as of 11/02/2023) Immunizations Name Administration Dates Next Due COVID-19 mRNA, LNP-s, No Pre serve, 2-Dose Series (Moderna) 06/14/2021,12/11/2020,11/12/2020 documented as of this encounter Social History Tobacco Use Types Packs/Day Years Used Date Smoking Tobacco: Never Smokeless Tobacco: Never Alcohol Use Standard Drinks/Week Comments Not Currently 0 (1 standard drink = 0.6 oz pur e alcohol) AUDIT-C Answer Date Recorded Frequency of Alcohol Consumption Never 06/16/2020 Average Number of Drinks Not on file 020 Frequency of Binge Drinking Not on file 05/31 Sex and Gender Information Value Date Recorded Sex Assigned at Not on file Gender Identity Not on file Sexual Orientation Not on file Job Start Date Occupation Industry Not on file Not on file Not on file documented as of this encounter Plan of Treatment Upcoming Encounters Date Type Department Care Team (Late st Contact Info) Description 05/17/2024 2:00 PM EDT Office Visit Rheumatology [place] [facility] [address] [place] [phone] Howard Dugan PA-C [address] [employer] [place] [address] Health Maintenance Due Date Last Done Comments Depression Screening 1968 Hepatitis C Screening 1974 DTaP,Tdap,and Td Vaccines (1 - Tdap) 1975 Cologuard 2001 Colonoscopy 2001 Colorectal Cancer Screening 2001 Fecal Occult Blood Test 2001 Sigmoidoscopy 2001 Zoster Vaccines (1 of 2) 2006 Pneumococcal Vaccine: 65+ Years (1 of 1 - PCV) 2021 *BASELINE EKG FOR HTN 08/09/2021 COVID-19 Vaccine (4 - season) 2023 06/14/2021, 12/11/2020, 11/12/2020 Influenza Vaccine (FLU shot) (Season Ended) 2024 04/27/2021, 03/31/2020 GFR 05/15/2024 10/11/2023, 04/30, 05/15/2023, Additional history exists HbA1c 05/15/2024 10/11/2023, 04/30, 11/02/2021, Additional history exists Albumin/Creatinine Ratio 05/15/2026 023, 11/02/2021, 06/02/2020 Lipid Panel 05/15/2028 05/15/2023, 06/02/2020 GARDASIL-HPV IMMUNIZATION SERIES Aged Out No longer eligible based on patient's age to complete this topic Hepatitis B Aged Out No longer eligi ble based on patient's age to complete this topic MENINGOCOCCAL (MENACTRA/MENVEO) Aged Out No longer eligible based on patient's age to complete this topic documented as of this encounter Medical Devices Not on filedocumented as of this encounter Procedures Procedure Name Priority Date/Time Associated Diagnosis Comments CHEMISTRY-OUTSIDE Routine 10/11/2023 documented in this encounter Results * (ABNORMAL) CHEMISTRY-OUTSIDE (10/11/2023) Not all results display below - see scan for full detail OUTSIDE LAB (SEE SCANNED REPORT) Comment:SCAN INCLUDES: BMP, A1C CREATININE-OUTSID E LAB 1.20 0.40 - 1.50 MG/DL OUTSIDE LAB (SEE SCANNED REPORT) EGFR-OUTSIDE LAB 66 >=60 ML/MIN/1.7 3M2 OUTSIDE LAB (SEE SCANNED REPORT) POTASSIUM-OUTSIDE LAB 5.0 3.6 - 5.0 MMOL/L OUTSIDE LAB (SEE SCANNED REPORT) GLUCOSE-OUTSIDE LAB 120(A) 65 - 110 MG/DL OUTSIDE LAB (SEE SCANNED REPORT) HOURS FASTING OUTSID E LAB (SEE SCANNED REPORT) TRIGLYCERIDES-OUT SIDE LAB OUTSIDE LAB (SEE SCANNED REPORT) CHOLESTEROL-OUTSI DE LAB OUTSIDE LAB (SEE SCANNED REPORT) HDL-OUTSIDE LAB OUTS [facility] (SEE SCANNED REPORT) CHOL/HDL RATIO-OUTSIDE LAB OUTSIDE LA B (SEE SCANNED REPORT) LDL (CALCULATED)-OUTS [facility] OUTSIDE LAB (SEE SCANNED REPORT) LDL (DIRECT MEASURE)-OUTSIDE LAB OUTSIDE LAB (SEE SCANNED REPORT) HEMOGLOBIN, K5R-TRCWVST LAB 6.6(A) 3.8 - 5.6 % OUTSIDE LAB (SEE SCANNED REPORT) PHOSPHORUS-OUTSID E LAB OUTSIDE LAB (SEE SCANNED REPORT) PTH-OUTSIDE LAB OUTS [facility] (SEE SCANNED REPORT) MICROALBUMIN RATIO-OUTSIDE LAB OUTSIDE LA B (SEE SCANNED REPORT) PROTEIN, UA-OUTSIDE LAB OUTSIDE LAB (SEE SCANNED REPORT) HGB OUTSIDE LA B (SEE SCANNED REPORT) 10/11/2023 Kushal Nava DO LABORATORY OUTSIDE LAB (SEE SCANNED REPORT) documented in this encounter Care Teams [employer] Relationship Specialty Start Date End Date Kushal Nava DO [address] [facility] [address] [place] [address] PCP - General Family Medicine 04/07/20 documented as of this encounter
== END 2023-12-13 16:21 | disposition home or self-care (01) ==
LOC: ED 15:29 → 3N 15:29 → SUATTDRO 18:38 → 3N 21:38
DX: Z79.899 Other long term (current) drug therapy; N40.1 Benign prostatic hyperplasia with lower urinary tract symptoms; N17.9 Acute kidney failure, unspecified; R31.0 Gross hematuria; N18.30 Chronic kidney disease, stage 3 unspecified; N13.8 Other obstructive and reflux uropathy; E11.22 Type 2 diabetes mellitus with diabetic chronic kidney disease; R33.8 Other retention of urine; Z79.84 Long term (current) use of oral hypoglycemic drugs; I12.9 Hypertensive chronic kidney disease with stage 1 through stage 4 chronic kidney disease, or unspecified chronic kidney disease; K40.20 Bilateral inguinal hernia, without obstruction or gangrene, not specified as recurrent; M10.9 Gout, unspecified; E78.5 Hyperlipidemia, unspecified; N28.1 Cyst of kidney, acquired; D64.9 Anemia, unspecified